=== PATIENT | male | born 1950 | race Caucasian/White ===

== ENCOUNTER 2018-08-11 21:21 | Emergency (ER) | payer SELFPAY ==
[~2018-08-11] VITALS: Ht 167.6 cm; Wt 71.6 kg
[2018-08-11 21:28] VITALS: BP 176/107; PULSE 76; RESP 16; Ht 167.6 cm; Wt 71.6 kg
== END 2018-08-11 22:20 | disposition left against medical advice (07) ==
LOC: FTE 21:21
DX: Z53.21 Procedure and treatment not carried out due to patient leaving prior to being seen by health care provider (principal)
CPT/HCPCS: 93005